=== PATIENT | male | born 1980 | race African-American/Black ===

== ENCOUNTER → 2021-09-05 09:10 | Outpatient (BNVA) | payer SELFPAY | PROVIDERS: Visit Provider Physician Assistant Medical | DX: Z02.79 Encounter for issue of other medical certificate (principal) ==

== ENCOUNTER 2024-12-20 10:44 | Emergency (ER) | payer OTHER, SELFPAY ==
--- NOTE | ~2024-12-20 | XR_ITS ---
CLINICAL HISTORY: right sided chest pain 2 view chest x-ray Comparison: CR/SR - CHEST 2 VIEWS - 08/03/19 23:40 EDT CR - CHEST 2 VIEWS - 02/11/18 00:40 EDT Findings: The lungs are clear. Heart size is normal. No acute fracture. IMPRESSION: 1. No acute findings. This document has been electronically signed by: Dillan Jenkins MD on 12/20/2024 13:23:40
[2024-12-20 10:47] VITALS: BP 129/83; PULSE 67; RESP 18; TEMP 36.4; O2SAT 98; BMI 27.7
--- NOTE | 2024-12-20 11:57 | ED.GENADULT ---
HPI - General Adult General Chief complaint: General Medical Stated complaint: muscle tightness in chest Time Seen by Provider: 12/20/24 11:57 Source: patient Mode of arrival: ambulatory Limitations: no limitations History of Present Illness ED Provider: KATELIN DOLL PA-C HPI narrative: 44 year old male with no significant pmhx presents to the ED today for evaluation of right sided chest pain which began after heavy lifting at the gym yesterday. Pain is localized to right anterior chest wall, worse with movement/ palptation of the area. He has not trialed any OTC analgesics. Denies assoc shortness of breath, palpitations. Denies smoking tobacco or vaping. No hx ivdu. Denies fever, chills. No recent travel or long car rides. Related Data Previous Rx's ?Medication ?Instructions ?Recorded cyclobenzaprine 5 mg tablet 5 mg PO Q8H #7 tabs 12/20/24 Allergies Allergy/AdvReac Type Severity Reaction Status Date / Time Penicillins [PCN] Allergy Intermediate HIVES Verified 12/20/24 10:51 Review of Systems Review of Systems: Constitutional: No fever, chills, fatigue, night sweats, weight changes ENT/Mouth: No ear pain, hearing loss, nasal congestion, sinus pain, rhinorrhea, sore throat Eyes: No eye pain, swelling, redness, vision changes, discharge Cardio: No palpitations, MACDONALD, orthopnea, peripheral edema, +chest wall pain Pulm: No SOB, cough, sputum, wheezing, dyspnea, hemoptysis GI: No nausea, vomiting, hematemesis, abdominal pain, diarrhea, constipation, hematochezia, melena : No irregular bleeding, dysuria, frequency, urgency, hesitancy, hematuria, flank pain, urinary flow changes, urinary incontinence or retention MSK: No back pain, neck pain, joint pain, myalgias Skin: No lesions, rashes Neuro: No weakness, numbness, paresthesias, LOC, dizziness, headache Psych: No anxiety/panic, depression, SI/HI, AH/VH All other systems reviewed and are negative. [facility] Past Medical History Attestation statement: The following information was validated with the patient. Source: old records reviewed and nursing notes reviewed Social History Social History Advance Directives: No Advance Directives Information Provided: Yes Do you have a plan to hurt others: No Plan Physical Exam ED Vital Signs: Vital Signs - 24 hr 12/20/24 10:47 Temperature 97.6 F Pulse Rate 67 Respiratory Rate 18 Blood Pressure 129/83 Pulse Oximetry 98 Oxygen Delivery Method Room Air BMI result Body Mass Index 27.7 vital signs stable, not tachycardic, not hypoxic General: Well appearing, in no acute distress. Skin: Warm, dry, intact. No rashes or lesions. Head: Normocephalic, atraumatic. EENT: Hearing is intact b/l. Moist mucous membranes.? Neck: Supple without LAD. FROM. Trachea midline.? Cardiac: Chest wall symmetric. RRR. +reproducible tenderness to palpation along right anterior chest wall without palpable deformity or crepitus. Lungs: Normal respiratory effort without accessory muscle use. CTA bilaterally. No rales, rhonchi, or wheezes.? Ext: Upper and lower extremities atraumatic, without tenderness, deformity, swelling or erythema. No calf tenderness Neuro: AOx3. Normal speech. Ambulating with steady gait. Course Course Course Narrative: Chest x-ray does not demonstrate pneumothorax or rib pathology. Given reproducible tenderness on palpation, worse with movement of the extremity, which began after known heavy lifting, likely muscle strain. He was treated with a dose of Toradol in the ED today. Advised for Tylenol, Motrin at home. Flexeril sent to pharmacy. Patient has remained stable throughout ED visit today. Discussed worrisome signs and symptoms and when to return to the ED. All questions answered at this time. Patient is agreeable with disposition and stable for discharge. Medications Administered Discontinued Medications Generic Name Dose Route Start Last Admin Trade Name Freq PRN Reason Stop Dose Admin Ketorolac Tromethamine 30 mg 12/20/24 12:44 12/20/24 13:05 Ketorolac Tromethamine 30 Mg/Ml Vial IM 12/20/24 12:45 30 mg ONCE ONE Administration Medical Decision Making Medical Decision Making [facility] Narrative: This patient presents with chest pain, with symptoms suggestive of noncardiac chest pain.?his vitals are stable. not hypoxic or tachycardic. he is well appearing and in NAD. there is reproducible tenderness w/ palpation of right anterior chest wall. History without high risk features (not substernal, no exertional component, not relieved with rest).? Minimal CAD risk factors (including age). Exam without evidence of volume overload Unlikely ACS, arrhythmia. Presentation not consistent with acute PE (PERC negative), pneumothorax, thoracic aortic dissection, cardiac effusion or tamponade. Differential includes msk strain, spasm, costochondritis. Plan: cxr, pain control. Differential Diagnosis Differential Diagnoses: The differential diagnosis associated with the presentation includes as above. Admission/Observation not indicated. Independent Interpretation I performed an independent interpretation of an: Plain X-Ray Interpretation: CXR without pneumothorax. Radiology Impression Discussion of test interpretation with radiology: I have reviewed the radiologist's reading. Radiologist Impression: Procedure(s): XR chest 2V Accession Number(s): [id number] cc: Physician,Unknown ; Katelin Doll~ CLINICAL HISTORY: right sided chest pain 2 view chest x-ray Comparison: CR/SR - CHEST 2 VIEWS - 08/03/19 23:40 EDT CR - CHEST 2 VIEWS - 02/11/18 00:40 EDT Findings: The lungs are clear. Heart size is normal. No acute fracture. IMPRESSION: 1. No acute findings. This document has been electronically signed by: Dillan Jenkins MD on 12/20/2024 13:23:40 External Record Review External record reviewed: Inpatient record Prescription Management I considered prescription management with: Pain Medication Social Determinants Patient?s care significantly limited by Social Determinants of Health including: Other Social Determinant of Health Critical Care Time Critical Care Time Critical Care Time: No Discharge Plan Discharge Clinical Impression: Chest wall muscle strain Patient Disposition: Home, Self-Care Instructions: Muscle Strain (ED) Additional Instructions: Your chest xray is normal. You likely strained a muscle of your chest wall. Use ice several times per day for 20 minutes at a time for the next 48 hours and then change to heat. We recommend you take 600mg ibuprofen every 6 hours or tylenol 650mg every 6 hours as needed for pain. If needed, you can alternate these medications so that you take one medication every 3 hours. For example, at noon take ibuprofen, then at 3pm take tylenol, then at 6pm take ibuprofen. Flexeril is a muscle relaxer. Take this at night as it makes you drowsy. Do not drive, drink alcohol, or operate machinery while taking it. Please schedule an appointment for follow-up with your primary care provider this week for further evaluation of your symptoms. Return to the Emergency Department if you experience worsening back pain, difficulty walking, fevers, numbness, tingling, incontinence, or any other concerning symptoms. In the case of an emergency call 911. Prescriptions: New cyclobenzaprine 5 mg tablet 5 mg PO Q8H Qty: 7 0RF Referrals: [facility] [facility] [place] [facility] [place] Luis Angel [Provider Group] [facility] [place] Group] Print Language: Turkish
[2024-12-20] MEDS: Ketorolac Tromethamine 30 MG/ML VIAL IM (13:05)
[2024-12-20 14:32] VITALS: BP 129/83; PULSE 67; RESP 18; TEMP 36.4; O2SAT 98
== END 2024-12-20 14:33 | disposition home or self-care (01) ==
PROVIDERS: Emergency Provider Emergency Medicine
DX: S29.011A Strain of muscle and tendon of front wall of thorax, initial encounter (principal); S21.101A Unspecified open wound of right front wall of thorax without penetration into thoracic cavity, initial encounter; R07.89 Other chest pain; I25.10 Atherosclerotic heart disease of native coronary artery without angina pectoris; X50.0XXA Overexertion from strenuous movement or load, initial encounter; Y93.B3 Activity, free weights; Y92.39 Other specified sports and athletic area as the place of occurrence of the external cause; Y99.8 Other external cause status
CPT/HCPCS: 71046; 96372; 99283; 99284; J1885

== ENCOUNTER → 2024-12-20 12:44 | Outpatient (BNV) | payer OTHER, SELFPAY | PROVIDERS: Emergency Provider Emergency Medicine; Visit Provider Radiology Diagnostic Radiology | DX: R07.9 Chest pain, unspecified (principal) | CPT/HCPCS: 71046 ==